=== PATIENT | male | born 1955 | race African-American/Black ===

== ENCOUNTER 2021-10-07 13:15 | Inpatient (IN) | payer MEDICAID ==
[~2021-10-07] VITALS: Ht 177.8 cm; Wt 61.7 kg
[2021-10-07 14:56] LABS: HEMATOCRIT. 46.2 % (42.0-52.0); HEMOGLOBIN. 15.7 g/dL (14.0-18.0); MEAN CORPUSCULAR VOLUME 93.9 fL (80.0-94.0); PLATELET 161 x1000/uL (130-400); RED BLOOD CELL COUNT 4.92 mill/uL (4.7-6.1); RED CELL DISTRIBUTION WIDTH 12.5 % (11.6-14.6)
[2021-10-07 15:01] LABS: CHLORIDE 105 mEq/L (98-107)
[2021-10-07 15:13] LABS: ETHANOL BLOOD < 10 mg/dL
[2021-10-07 16:11] LABS: PLATELET ESTIMATE NORMAL
[2021-10-07 18:22] LABS: CLARITY URINE CLEAR (CLEAR); COLOR URINE YELLOW (YELLOW); KETONES URINE 1+ (NEGATIVE); LEUKOCYTE ESTERASE URINE NEGATIVE (NEGATIVE); NITRITE URINE NEGATIVE (NEGATIVE); OCCULT BLOOD URINE NEGATIVE (NEGATIVE); PROTEIN URINE 2+ (NEGATIVE); SPECIFIC GRAVITY URINE 1.029 (1.005-1.030)
[2021-10-07 18:36] LABS: *AMPHETAMINES SCREEN URINE NEGATIVE (NEGATIVE); *BARBITURATES SCREEN URINE NEGATIVE (NEGATIVE); *BENZODIAZEPINES SCREEN URINE PRESUMTIVE POSITIVE (NEGATIVE); *COCAINE SCREEN URINE PRESUMTIVE POSITIVE (NEGATIVE); CANNABINOID URINE SCREEN NEGATIVE (NEGATIVE); METHADONE URINE SCREEN NEGATIVE (NEGATIVE); OPIATES URINE SCREEN NEGATIVE (NEGATIVE); PHENCYCLIDINE URINE SCREEN NEGATIVE (NEGATIVE)
[2021-10-07] MEDS ORDERED: SODIUM CHLORIDE 0.9% 1,000 ML IV ONE ×2 (19:45→21:15)
[2021-10-07] MEDS ORDERED: INSULIN REGULAR (HUMULIN R) 300UNITS/3ML VIAL SUBCUT ONE (21:15)
[2021-10-07 23:14] LABS: CHLORIDE 106 mEq/L (98-107)
[2021-10-07] MEDS: SODIUM CHLORIDE 0.9% 1,000 ML IV SCH (23:45)
[2021-10-07] MEDS ORDERED: MAGNESIUM/ALUMINUM HYDROXIDE/SIMETHICONE 30ML UDC PO PRN (23:45)
[2021-10-07] MEDS ORDERED: ONDANSETRON HCL 4MG/2ML INJ IV PRN (23:45)
[2021-10-07] MEDS ORDERED: DEXTROSE 50% WATER 50ML SYRINGE IV PRN (23:45)
[2021-10-07] MEDS ORDERED: HYDRALAZINE 20MG/ML VIAL IV PRN (23:45)
[2021-10-07] MEDS ORDERED: CLONIDINE 0.1MG TABLET PO PRN (23:45)
[2021-10-07] MEDS ORDERED: DIPHENHYDRAMINE 50MG/ML VIAL IV PRN (23:45)
[2021-10-07] MEDS ORDERED: ACETAMINOPHEN 325MG TABLET PO PRN ×2 (23:45)
[2021-10-08 00:27] VITALS: BP 158/88
[2021-10-08 04:00] VITALS: BP 157/99
[2021-10-08 07:21] LABS: BASOPHILS % 0.3 % (0.0-2.0); HEMATOCRIT. 48.7 % (42.0-52.0); HEMOGLOBIN. 16.5 g/dL (14.0-18.0); LYMPHOCYTES % 12.7 % (20.0-50.0); MEAN CORPUSCULAR HEMOGLOBIN 32.1 pg (28.0-32.0); MEAN CORPUSCULAR VOLUME 94.9 fL (80.0-94.0); MEAN PLATELET VOLUME 8.1 fl (7.4-10.4); MONOCYTES % 7.7 % (2.0-8.0); NEUTROPHILS % 79.3 % (40.0-76.0); PLATELET 176 x1000/uL (130-400); RED BLOOD CELL COUNT 5.14 mill/uL (4.7-6.1); RED CELL DISTRIBUTION WIDTH 12.9 % (11.6-14.6)
[2021-10-08] MEDS: BLOOD SUGAR DIAGNOSTIC STRIP TEST SCH ×4 (07:23→20:20)
[2021-10-08 07:40] LABS: CHLORIDE 104 mEq/L (98-107)
[2021-10-08 07:47] LABS: PHOSPHORUS 3.7 mg/dL (2.5-4.9)
[2021-10-08 08:00] VITALS: BP 150/97
[2021-10-08] MEDS: INSULIN LISPRO 100 UNITS/ML SUBCUT SCH ×4 (08:32→20:19)
[2021-10-08] MEDS: SODIUM CHLORIDE 0.9% 1,000 ML IV SCH ×2 (10:25→20:18)
[2021-10-08 12:00] VITALS: BP 140/86
[2021-10-08 16:00] VITALS: BP 154/96
[2021-10-08 20:31] VITALS: BP 166/90
[2021-10-09] VITALS: BP 154/83
[2021-10-09 00:36] VITALS: BP 154/83
[2021-10-09 04:00] VITALS: BP 156/89
[2021-10-09] MEDS: SODIUM CHLORIDE 0.9% 1,000 ML IV SCH (05:15)
[2021-10-09] MEDS: BLOOD SUGAR DIAGNOSTIC STRIP TEST SCH ×2 (06:46→11:41)
[2021-10-09 07:52] VITALS: BP 152/95
[2021-10-09] MEDS: INSULIN LISPRO 100 UNITS/ML SUBCUT SCH ×2 (07:58→12:29)
[2021-10-09 11:45] VITALS: BP 142/72
[2021-10-09 14:51] VITALS: BP 142/72
== END 2021-10-09 15:50 | disposition home or self-care (01) | DRG 52 ==
LOC: ER 13:15 → EDBD 21:11 → 7WST 21:11 → ENRESERV 22:11
PROVIDERS: ADMIT Internal Medicine; ATTEND Internal Medicine
DX: G92.8 Other toxic encephalopathy (principal); N17.9 Acute kidney failure, unspecified; E11.65 Type 2 diabetes mellitus with hyperglycemia
CPT/HCPCS: 36415; 71045; 80048; 80053; 80305; 80320; 81003; 82140; 82962; 83036; 83735; 84100; 84484; 85025; 93005; 99291; J0360; J1200; J1815; J7030; G0480

== ENCOUNTER 2021-10-20 21:43 | Emergency (ER) | payer MEDICAID ==
[~2021-10-20] VITALS: Ht 190.5 cm; Wt 69.2 kg
[2021-10-20 21:54] VITALS: BP 147/95
== END 2021-10-21 04:46 | disposition left against medical advice (07) ==
LOC: ER 21:43
DX: Z53.21 Procedure and treatment not carried out due to patient leaving prior to being seen by health care provider (principal)
CPT/HCPCS: 99284

== ENCOUNTER 2024-10-20 20:14 | Inpatient (IN) | payer MEDICAID, OTHER ==
[~2024-10-20] VITALS: Ht 182.9 cm; Wt 64.4 kg
[2024-10-20 20:45] VITALS: O2SAT 100
[2024-10-21] MEDS ORDERED: DIPHENHYDRAMINE 50MG/ML VIAL IV PRN (05:45)
[2024-10-21] MEDS ORDERED: ONDANSETRON HCL 4MG/2ML INJ IV PRN (05:45)
[2024-10-21] MEDS ORDERED: ACETAMINOPHEN 325MG TABLET PO PRN ×2 (05:45)
[2024-10-21] MEDS ORDERED: CLONIDINE 0.1MG TABLET PO PRN (05:45)
[2024-10-21] MEDS ORDERED: MVI, ADULT NO.1 10 ML, FOLIC ACID 1 MG, THIAMINE HCL 100 MG in SODIUM CHLORIDE 0.9% 988... IV SCH (07:30)
[2024-10-21 07:55] VITALS: BP 0/0; PULSE 0; RESP 0; TEMP 37
[2024-10-21] MEDS: MVI, ADULT NO.1 10 ML, FOLIC ACID 1 MG, THIAMINE HCL 100 MG in SODIUM CHLORIDE 0.9% 1,0... IV NR (08:30)
[2024-10-21 08:57] VITALS: BP 168/94; PULSE 66; RESP 18; TEMP 36.6; O2SAT 96
[2024-10-21] MEDS: AMLODIPINE 5MG TABLET PO SCH (09:31)
[2024-10-21] MEDS: LISINOPRIL 20MG TABLET PO SCH (09:31)
[2024-10-21] MEDS: ATENOLOL 50 MG TABLET PO SCH (09:36)
[2024-10-21] MEDS ORDERED: AMLO5TAB5 MT (09:51)
[2024-10-21] MEDS ORDERED: ATEN-177 PO (09:51)
[2024-10-21] MEDS ORDERED: LISI-652 PO (09:51)
[2024-10-21] MEDS ORDERED: METFORMIN HCL 500MG TABLET PO SCH (11:00)
[2024-10-21 12:00] VITALS: BP 147/77; PULSE 63; RESP 18; TEMP 36.6; O2SAT 97
== END 2024-10-21 14:25 | disposition left against medical advice (07) | DRG 52 ==
LOC: ER 20:14 → EDBEDREQ 10-21 01:42 → EDBEDREQTM 10-21 01:42 → ENRESERV 10-21 02:24 → 8WST 10-21 06:08
PROVIDERS: ADMIT Internal Medicine; ATTEND Internal Medicine
DX: G92.8 Other toxic encephalopathy (principal); E11.9 Type 2 diabetes mellitus without complications; Z53.29 Procedure and treatment not carried out because of patient's decision for other reasons; I10 Essential (primary) hypertension; J45.909 Unspecified asthma, uncomplicated; F11.90 Opioid use, unspecified, uncomplicated; E78.5 Hyperlipidemia, unspecified; Z79.899 Other long term (current) drug therapy
CPT/HCPCS: 99285; J3411; J3490; J7030